=== PATIENT | female | born 1975 | race Two or more races ===

== ENCOUNTER 2023-06-27 10:27 | Inpatient (IN) | payer MEDICAID ==
[~2023-06-27] VITALS: Ht 149.9 cm; Wt 49.9 kg
[2023-06-27 10:55] VITALS: BP 149/102; TEMP 99; O2SAT 98
[2023-06-27 12:27] VITALS: BP 150/87; TEMP 99.1; O2SAT 97
[2023-06-27] MEDS ORDERED: ACETAMINOPHEN 325 MG TABLET PO PRN (15:45)
[2023-06-27] MEDS ORDERED: REMEDY ESSENTIAL ZINC PASTE 113 GM TP PRN (15:45)
[2023-06-27] MEDS ORDERED: hydrALAZINE HCL 20 MG/1 ML VIAL IV PRN (15:45)
[2023-06-27] MEDS ORDERED: ONDANSETRON 4 MG/2 ML VIAL IV PRN (15:45)
[2023-06-27] MEDS: OCTREOTIDE ACETATE DRIP 500 MCG in IV NORMAL SALINE 99 ML IV SCH (16:48)
[2023-06-27 17:45] LABS: BASOPHILS # (AUTO) 0.1 K/UL (0.0-0.2); BASOPHILS % (AUTO) 1.2 % (0.0-2.0); EOSINOPHILS % (AUTO) 0.2 % (0.0-7.0); HEMATOCRIT 35.6 % (31.2-41.9); HEMOGLOBIN 11.9 g/dL (10.9-14.3); LYMPHOCYTES # (AUTO) 1.5 K/uL (0.8-4.8); LYMPHOCYTES % (AUTO) 14.4 % (20.5-51.5); MEAN CORPUSCULAR HEMOGLOBIN 33.2 uug (24.7-32.8); MEAN CORPUSCULAR HGB CONC 34 g/dL (32.3-35.6); MEAN CORPUSCULAR VOLUME 99.1 fL (75.5-95.3); MONOCYTES % (AUTO) 9.6 % (0.0-11.0); NEUTROPHILS # (AUTO) 7.7 K/uL (1.8-8.9); NEUTROPHILS % (AUTO) 74.6 % (38.5-71.5); PLATELET COUNT (AUTO) 139 K/uL (179-408); RED BLOOD CELL COUNT(AUTO) 3.59 MIL/uL (3.63-4.92); RED CELL DISTRIBUTION WIDTH 14.1 % (12.3-17.7); WHITE BLOOD COUNT (AUTO) 10.3 K/uL (3.8-11.8)
[2023-06-27 18:08] LABS: DIFFERENTIAL COMMENT 1
[2023-06-27 18:48] LABS: CALCIUM 8.9 mg/dL (8.5-10.1); CARBON DIOXIDE 26 mmol/L (21-32); CHLORIDE 102 mmol/L (98-107); CREATININE 0.5 mg/dL (0.6-1.3); GLUCOSE 90 mg/dL (74-106); POTASSIUM 3.7 mmol/L (3.5-5.1); SODIUM SERUM 141 mmol/L (136-145); UREA NITROGEN, BLOOD 8 mg/dL (7-18)
[2023-06-27] MEDS: IV D5 1/2 NS 1000 ML 1,000 ML IV PRN (19:53)
[2023-06-27 20:00] VITALS: BP 155/92; TEMP 98.5; O2SAT 98
[2023-06-27] MEDS: PANTOPRAZOLE SODIUM 40 MG VIAL IV SCH (20:43)
[2023-06-28 00:15] VITALS: BP 156/94; TEMP 98.6; O2SAT 99
[2023-06-28] MEDS: OCTREOTIDE ACETATE DRIP 500 MCG in IV NORMAL SALINE 99 ML IV SCH ×3 (02:38→23:51)
[2023-06-28 04:30] VITALS: BP 163/96; TEMP 98.7; O2SAT 100
[2023-06-28 07:36] LABS: BASOPHILS # (AUTO) 0.1 K/UL (0.0-0.2); BASOPHILS % (AUTO) 1.3 % (0.0-2.0); EOSINOPHILS # (AUTO) 0.1 K/uL (0.0-0.7); EOSINOPHILS % (AUTO) 2.1 % (0.0-7.0); HEMATOCRIT 33.5 % (31.2-41.9); HEMOGLOBIN 11.1 g/dL (10.9-14.3); LYMPHOCYTES # (AUTO) 1.4 K/uL (0.8-4.8); LYMPHOCYTES % (AUTO) 27.1 % (20.5-51.5); MEAN CORPUSCULAR HGB CONC 33 g/dL (32.3-35.6); MEAN CORPUSCULAR VOLUME 99.5 fL (75.5-95.3); MONOCYTES # (AUTO) 0.7 K/uL (0.1-1.30); MONOCYTES % (AUTO) 13.3 % (0.0-11.0); NEUTROPHILS # (AUTO) 2.9 K/uL (1.8-8.9); NEUTROPHILS % (AUTO) 56.2 % (38.5-71.5); PLATELET COUNT (AUTO) 124 K/uL (179-408); RED BLOOD CELL COUNT(AUTO) 3.36 MIL/uL (3.63-4.92); RED CELL DISTRIBUTION WIDTH 13.9 % (12.3-17.7); WHITE BLOOD COUNT (AUTO) 5.2 K/uL (3.8-11.8)
[2023-06-28 07:49] LABS: DIFFERENTIAL COMMENT 1
[2023-06-28 08:04] LABS: CREATININE 0.6 mg/dL (0.6-1.3); MAGNESIUM 1.8 mg/dL (1.8-2.4); PHOSPHOROUS 2.4 mg/dL (2.5-4.9); POTASSIUM 3.4 mmol/L (3.5-5.1)
[2023-06-28] MEDS: PANTOPRAZOLE SODIUM 40 MG VIAL IV SCH ×2 (08:46→21:09)
[2023-06-28] MEDS: IV D5 1/2 NS 1000 ML 1,000 ML IV PRN ×2 (08:47→23:51)
[2023-06-28] MEDS: POTASSIUM CHLORIDE 50 ML IV SCH ×2 (09:50→11:09)
[2023-06-28 11:58] VITALS: BP 168/98; TEMP 98.7; O2SAT 98
[2023-06-28] MEDS: hydrALAZINE HCL 20 MG/1 ML VIAL IV PRN (12:06)
[2023-06-28] MEDS ORDERED: SODIUM PHOSPHATE MM 15 MMOL in IV NORMAL SALINE 250 ML IV ONE (15:00)
[2023-06-28 15:47] VITALS: BP 129/80; TEMP 98.8; O2SAT 97
[2023-06-28 18:43] LABS: HEMATOCRIT 32.8 % (31.2-41.9); HEMOGLOBIN 10.9 g/dL (10.9-14.3)
[2023-06-28 20:00] VITALS: BP 146/78; TEMP 98.6; O2SAT 100
[2023-06-29 00:58] LABS: HEMATOCRIT 33.1 % (31.2-41.9)
[2023-06-29 04:03] VITALS: BP 143/86; TEMP 98.3; O2SAT 98
[2023-06-29 04:07] LABS: HEMATOCRIT 33.4 % (31.2-41.9); HEMOGLOBIN 11.2 g/dL (10.9-14.3)
[2023-06-29 04:32] LABS: CALCIUM 8.3 mg/dL (8.5-10.1); CREATININE 0.6 mg/dL (0.6-1.3); MAGNESIUM 1.7 mg/dL (1.8-2.4); PHOSPHOROUS 3.7 mg/dL (2.5-4.9); POTASSIUM 3.4 mmol/L (3.5-5.1)
[2023-06-29 05:05] LABS: *BILIRUBIN,URIN NEGATIVE (NEGATIVE); *BLOOD, URINE NEGATIVE (NEGATIVE); *CLARITY,URINE CLEAR (CLEAR); *COLOR,URINE YELLOW (YELLOW); *KETONES,URINE NEGATIVE (NEGATIVE); *PROTEIN,URINE NEGATIVE (NEGATIVE); *UROBILINOGEN,URINE 0.2 E.U./dl (NORMAL); LEUKOCYTE ESTERASE ,URINE NEGATIVE (NEGATIVE); NITRITE, URINE NEGATIVE (NEGATIVE); PH,URINE 6.5 (5.0-8.0); UGLUCOSE NEGATIVE (NEGATIVE)
[2023-06-29 05:13] LABS: *URINE HCG, QUAL NEGATIVE (NEGATIVE)
[2023-06-29] MEDS ORDERED: SUCCINYLCHOLINE CHLORIDE 200 MG/10 ML VIAL ONE (06:18)
[2023-06-29 08:00] VITALS: BP 145/91; TEMP 98.2; O2SAT 99
[2023-06-29] MEDS: SUCRALFATE 1 G/10 ML LIQUID UDC PO SCH ×3 (09:57→17:13)
[2023-06-29] MEDS: PANTOPRAZOLE SODIUM 40 MG VIAL IV SCH ×2 (09:57→20:19)
[2023-06-29] MEDS: MAGNESIUM SULFATE/D5W 100 ML IV SCH ×2 (10:49→11:42)
[2023-06-29 11:33] VITALS: BP 160/91; TEMP 99.7; O2SAT 100
[2023-06-29] MEDS: POTASSIUM CHLORIDE 50 ML IV SCH ×2 (12:18→13:00)
[2023-06-29] MEDS: hydrALAZINE HCL 20 MG/1 ML VIAL IV PRN (12:18)
[2023-06-29] MEDS ORDERED: POTASSIUM CHLORIDE 20 MEQ POWDER PACKET PO ONE (13:51)
[2023-06-29] MEDS: IV D5 1/2 NS 1000 ML 1,000 ML IV PRN (15:15)
[2023-06-29 16:00] VITALS: BP 119/71; TEMP 98.5; O2SAT 98
[2023-06-29 20:00] VITALS: BP 145/85; TEMP 99; O2SAT 100
[2023-06-30 04:00] VITALS: BP 129/73; TEMP 98.7; O2SAT 100; O2SAT 99
[2023-06-30] MEDS: IV D5 1/2 NS 1000 ML 1,000 ML IV PRN (05:04)
[2023-06-30 07:49] LABS: BASOPHILS % (AUTO) 0.7 % (0.0-2.0); EOSINOPHILS # (AUTO) 0.1 K/uL (0.0-0.7); EOSINOPHILS % (AUTO) 2.2 % (0.0-7.0); HEMATOCRIT 31.6 % (31.2-41.9); HEMOGLOBIN 10.7 g/dL (10.9-14.3); LYMPHOCYTES # (AUTO) 1.4 K/uL (0.8-4.8); MEAN CORPUSCULAR HEMOGLOBIN 33.4 uug (24.7-32.8); MEAN CORPUSCULAR HGB CONC 34 g/dL (32.3-35.6); MEAN CORPUSCULAR VOLUME 98.8 fL (75.5-95.3); MONOCYTES # (AUTO) 0.8 K/uL (0.1-1.30); MONOCYTES % (AUTO) 13.3 % (0.0-11.0); NEUTROPHILS # (AUTO) 3.8 K/uL (1.8-8.9); NEUTROPHILS % (AUTO) 61.8 % (38.5-71.5); PLATELET COUNT (AUTO) 123 K/uL (179-408); RED CELL DISTRIBUTION WIDTH 13.7 % (12.3-17.7); WHITE BLOOD COUNT (AUTO) 6.2 K/uL (3.8-11.8)
[2023-06-30 08:04] LABS: DIFFERENTIAL COMMENT 1
[2023-06-30] MEDS: SUCRALFATE 1 G/10 ML LIQUID UDC PO SCH ×2 (08:18→10:58)
[2023-06-30] MEDS: PANTOPRAZOLE SODIUM 40 MG VIAL IV SCH (08:18)
[2023-06-30 08:30] LABS: CARBON DIOXIDE 23 mmol/L (21-32); CHLORIDE 107 mmol/L (98-107); CREATININE 0.5 mg/dL (0.6-1.3); GLUCOSE 122 mg/dL (74-106); PHOSPHOROUS 3.3 mg/dL (2.5-4.9); SODIUM SERUM 141 mmol/L (136-145); UREA NITROGEN, BLOOD 2 mg/dL (7-18)
[2023-06-30 08:40] LABS: POTASSIUM 2.8 mmol/L (3.5-5.1)
[2023-06-30 09:04] VITALS: BP 135/70; TEMP 98.7; O2SAT 99
[2023-06-30] MEDS ORDERED: POTASSIUM CHLORIDE 20 MEQ POWDER PACKET PO ONE (10:30)
[2023-06-30] MEDS ORDERED: SUCR1ORA PO (10:33)
[2023-06-30] MEDS ORDERED: PANT40TA2 PO (10:33)
== END 2023-06-30 13:25 | disposition home or self-care (01) | DRG 242 ==
LOC: TELE3 10:27 → MEDSURG3 06-29 10:39
PROVIDERS: ADMIT Internal Medicine; ATTEND Internal Medicine
PROC: 0W3P8ZZ Control Bleeding in Gastrointestinal Tract, Via Natural or Artificial Opening Endoscopic (ICD-10-PCS; principal; 2023-06-29)
DX: K22.6 Gastro-esophageal laceration-hemorrhage syndrome (principal); E87.6 Hypokalemia; F10.10 Alcohol abuse, uncomplicated; F17.210 Nicotine dependence, cigarettes, uncomplicated; K29.70 Gastritis, unspecified, without bleeding; R53.83 Other fatigue
CPT/HCPCS: 36415; 83735; 84100; 84703; 85018; 85025; 85730; 93005; A4663; C9113; G0378; J0330; J0360; J2354; J3475; J3480; J3490